=== PATIENT | female | born 1985 | race Caucasian/White ===

== ENCOUNTER 2016-12-11 05:30 | Day surgery (SDC) | payer BC ==
[~2016-12-11] VITALS: Ht 167.6 cm; Wt 102.9 kg
[~2016-12-11 05:30] MED LIST: ACID CONTROLLER10 MG PO; ALLEGRA ALLERG180 MG PO; BENTYL10 MG PO; CHLORDIAZEPOXI1 EACH PO; CIPRO500 MG PO; NAPROSYN500 MG PO; OCELLA TABLET1 EACH PO; PREDNISONE20 MG PO; ULTRAM50 MG PO
[2016-12-11 06:57] VITALS: BP 139/89
[2016-12-11] MEDS ORDERED: MOTRIN800 MG PO (08:56)
[2016-12-11] MEDS ORDERED: PERCOCET 5/31 TABLET PO (08:56)
[2016-12-11 09:56] VITALS: BP 138/85
[2016-12-11 10:50] VITALS: BP 124/80
[2016-12-11 12:50] VITALS: BP 155/65
== END 2016-12-11 13:25 | disposition home or self-care (01) ==
LOC: SDC 05:30
DX: N92.5 Other specified irregular menstruation (principal); N73.6 Female pelvic peritoneal adhesions (postinfective); N72 Inflammatory disease of cervix uteri; N80.3 Endometriosis of pelvic peritoneum; K21.9 Gastro-esophageal reflux disease without esophagitis
CPT/HCPCS: 88305; J0330; J1100; J1170; J1885; J2250; J2405; J2710; J3010